=== PATIENT | male | born 1965 | race African-American/Black ===

== ENCOUNTER 2025-06-17 19:50 | Emergency (ER) | payer MEDICARE, OTHER ==
[~2025-06-17] VITALS: Ht 177.8 cm; Wt 85.0 kg
--- NOTE | 2025-06-17 20:52 | ED.PDOC ---
History of Present Illness HPI Comments 59-year-old male presents with a chief complaint of bilateral leg pain x 2 weeks. 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 Patient states that he feels like his feet are burning. Patient is requesting pain management and states that he won't see his primary until July. Vital signs were stable on arrival. Patient denies any recent trauma. Chief Complaint: Lower Extremity Time Seen by MD: 20:40 Reviewed Notes: Nurses Notes, Medications, Allergies Allergies: Coded Allergies: NO KNOWN ALLERGIES (Unverified , 06/17/25) Information Source: Patient Mode of Arrival: Ambulatory Severity: Moderate Timing: Days Duration: Since onset Prehospital treatment: None Past Medical History PAST MEDICAL HISTORY: Denies Past Medical History (Other): Patient states a history of degenerative disc disease of the lumbar spine. Surgical History: Denies all surgeries Family History Family History: Reviewed,noncontributory to illness Social History Smoker: Non-Smoker Alcohol: Denies ETOH Use Drugs: Denies Drug Use Lives In: Home Constitutional: denies: chills, diaphoresis, fatigue, fever, malaise, sweats, weakness, others EENTM: denies: blurred vision, double vision, ear bleeding, ear discharge, ear drainage, ear pain, ear ringing, eye pain, eye redness, hearing loss, mouth pain, mouth swelling, nasal discharge, nose bleeding, nose congestion, nose pain, photophobia, tearing, throat pain, throat swelling, voice changes, others Respiratory: denies: cough, hemoptysis, orthopnea, SOB at rest, shortness of breath, SOB with excertion, stridor, wheezing, others Cardiovascular: denies: chest pain, dizzy spells, diaphoresis, Dyspnea on exertion, edema, irregular heart beat, left arm pain, lightheadedness, palpitations, PND, syncope, others Gastrointestinal: denies: abdomen distended, abdominal pain, blood streaked bowels, constipated, diarrhea, dysphagia, difficulty swallowing, hematemesis, melena, nausea, poor appetite, poor fluid intake, rectal bleeding, rectal pain, vomiting, others Genitourinary: denies: burning, dysuria, flank pain, frequency, hematuria, incontinence, penile discharge, penile sore, pain, testicle pain, testicle swelling, urgency, others Neurological: denies: dizziness, fainting, headache, left sided numbness, left sided weakness, numbness, paresthesia, pre-existing deficit, right sided numbness, right sided weakness, seizure, speech problems, tingling, tremors, weakness, others Musculoskeletal: reports: muscle pain (Bilateral lower extremity pain with burning and numbness); denies: back pain, gout, joint pain, joint swelling, muscle stiffness, neck pain, others Integumetry: denies: bruises, change in color, change in hair/nails, dryness, laceration, lesions, lumps, rash, wounds, others Allergic/Immunocompromised: denies: Difficulty Healing, Frequent Infections, Hives, Itching, others Hematologic/Lymphatic: denies: anemia, blood clots, easy bleeding, easy bruising, swollen glands, others Endocrine: denies: excessive hunger, excessive sweating, excessive thirst, excessive urination, flushing, intolerance to cold, intolerance to heat, unexplained weight gain, unexplained weight loss, others Psychiatric: denies: anxiety, bipolar disorder, depression, hopeless, panic disorder, schizophrenia, sleepless, suicidal, others All Other Systems: Reviewed and Negative Physical Exam General Appearance: Moderate Distress (Due to bilateral lower extremity pain), Normal HEENT: Normal ENT Inspection, Pharynx Normal, TMs Normal Neck: Full Range of Motion, Non-Tender, Normal, Normal Inspection Respiratory: Chest Non-Tender, Lungs Clear, No Accessory Muscle Use, No Respir atory Distress, Normal Breath Sounds Cardiovascular: No Edema, No JVD, No Murmur, No Gallop, Normal Peripheral Pulses, Regular Rate/Rhythm Breast Exam: Deferred Gastrointestinal: No Organomegaly, Non Tender, No Pulsatile Mass, Normal Bowel Sounds, Soft Genitalia: Deferred Pelvic: Deferred Rectal: Deferred Extremities: Normal capillary refill, No pedal edema, Other (Relatively unremarkable examination of bilateral lower extremities. Edema or ecchymosis. No erythema. Patient complains of burning and numbness points throughout his bilateral lower extremities.) Musculoskeletal : Apperance: Normal Neurologic: Alert, No Motor Deficits, Normal Affect, Normal Mood, No Sensory Deficits Cerebellar Function: Normal Reflexes: Normal Skin: Dry, Normal Color, Warm Lymphatic: No Adenopathy Was a procedure done? Was a procedure done?: No Differential Dx Considerations may include: Neuropathic pain, degenerative disc disease of the lumbar spine, lumbar radiculopathy X-Ray, Labs, Meds, VS Vital Signs Date Time Temp Pulse Resp B/P (MAP) Pulse Ox O2 Delivery O2 Flow Rate FiO2 06/17/25 21:34 Room Air* 0 21 06/17/25 21:20 97.7 80 18 171/94 (119) 96 97.7 06/17/25 20:32 97.7 81 20 167/86 (113) 99 97.7 Current Medications Medications (Trade) Dose Ordered Sig/Patricia Route Start Time Stop Time Status Last Admin Acetaminophen/ Hydrocodone Bitart ([place] 10/325MG Tab) 1 tab ONCE ONCE PO 06/17/25 21:30 06/17/25 21:31 DC 06/17/25 21:30 X-Ray, Labs, Meds, VS Comment Advised patient that his condition is a neuropathic one related to his low back concerns based on his historic presentation. 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 Time of 1ST Reevaluation: 21:43 Reevaluation 1ST: Improved Consultation: PCP, Other (Pain management) Patient Education/Counseling: Diagnosis, Treatment Family Education/Counseling: Diagnosis, Treatment, No Family Present SEPSIS Sepsis Screen Date sepsis recognized/suspect: Jun 17, 2025 Time Sepsis recognized/suspect: 2043 Recent Procedure: No On Antibiotic Therapy: No Respiratory Rate >20: No Heart Rate >90: No Temp<36 C (96.8 F) or >38.3 C: No SBP <90 or MAP <65 mmHG: No New Acute Mental Status Change: No Is the patient on CPAP, BIPAP,: No Vital Signs Date Time Temp Pulse Resp B/P (MAP) Pulse Ox O2 Delivery O2 Flow Rate FiO2 06/17/25 21:34 Room Air* 0 21 06/17/25 21:20 97.7 80 18 171/94 (119) 96 97.7 06/17/25 20:32 97.7 81 20 167/86 (113) 99 97.7 Medications Medications Dose Ordered Sig/Patricia Route Start Time Stop Time Status Last Admin Dose Admin Acetaminophen/ Hydrocodone Bitart 1 tab ONCE ONCE PO 06/17/25 21:30 06/17/25 21:31 DC 06/17/25 21:30 Departure 1 Departure Time of Disposition: 21:45 Impression: Primary Impression: Bilateral lumbar radiculopathy Additional Impression: Neuropathic pain of both legs Disposition: HOME / SELF CARE / HOMELESS Condition: Stable Additional Instructions: Advise utilizing pain medication as needed for symptomatic relief. Patient has been advised to contact his primary care provider for pain management referral and evaluation as it appears he will need long-term medication to manage his chronic pain issues. e-Prescriptions Hydrocodone-Acetaminophen (Hydrocodone Bitartrate/AC 10-325 mg) 1 Tab Tab 1 TAB PO Q8HP PRN, #15 TAB Prov: TANESHA MARTINEZ PAC 06/17/25 Discharged With: Self, Friend Critical Care Note Critical Care Time?: No Stability Stability form required: No Heart Score Heart Score: Heart Score Response (Comments) Value History N/A 0 EKG N/A 0 Age N/A 0 Risk Factors N/A 0 Troponin N/A 0 Total 0 I personally scribed for TANESHA MARTINEZ PAC ([email or web address]) on 06/17/25 at 20:51. Electronically submitted by Edward Hein ([email or web address]). TANESHA MARTINEZ PAC Jun 17, 2025 20:51
[2025-06-17] MEDS ORDERED: GABAPENTIN 300 MG CAP PO ONE (21:00)
[2025-06-17 21:20] VITALS: BP 171/94; PULSE 80; RESP 18; TEMP 97.7; O2SAT 96
[2025-06-17] MEDS: HYDROcodone-ACET 10/325MG TAB PO ONE (21:30)
[2025-06-17] MEDS ORDERED: HYDR-4798 PO (21:46)
== END 2025-06-17 22:33 | disposition home or self-care (01) ==
LOC: ER 19:50
DX: M51.17 Intervertebral disc disorders with radiculopathy, lumbosacral region (principal); G62.9 Polyneuropathy, unspecified
CPT/HCPCS: 82947